=== PATIENT | male | born 1990 | race Hispanic/Latino ===

== ENCOUNTER 2017-02-04 21:27 | Observation (INO) | payer OTHER ==
[2017-02-04 21:28] VITALS: BMI 23.1
[2017-02-04] MEDS ORDERED: Multivitamin (MVI) 10 ML, Thiamine 100 MG, Folic Acid 1 MG in Dextrose 5% In Water 1,00... IV ONE (22:33)
[2017-02-04] MEDS ORDERED: TDAP Vaccine 0.5 mL Syr IM ONE (22:33)
--- NOTE | 2017-02-04 22:39 | ED PDOC ---
Arrival/HPI - General Historian: Patient <Eleazar Multani - Last Filed: 02/05/17 00:31> <Joel Zuniga - Last Filed: 02/05/17 05:40> <Compa Marshall - Last Filed: 02/05/17 09:44> - General Chief Complaint: Alcohol Ingestion Time Seen by Provider: 02/04/17 22:32 - History of Present Illness Narrative History of Present Illness (Text): 02/04/17 22:36 26 y/o male, no significant pmh, nkda, last tetanus over 10 years ago, biba due to the etoh in the public and fall on the head in the ER while intoxicated in the ER. Pt. stated that he wants to go home, no homicidal or suicidal ideation , no auditory or visual hallucination, no night sweat, no dizziness, limited HPI can be obtained due to the patient is intoxicated at this time. (Eleazar Multani ) Past Medical History - Provider Review Nursing Documentation Reviewed: Yes - Past Medical History Past Medical History: No Previous - Psychiatric Hx Depression: No Hx Emotional Abuse: No Hx Physical Abuse: No Hx Substance Use: Yes (CANNABIS) - Past Surgical History Past Surgical History: No Previous - Suicidal Assessment Feels Threatened In Home Enviroment: No <Eleazar Multani - Last Filed: 02/05/17 00:31> Family/Social History - Physician Review Nursing Documentation Reviewed: Yes Family/Social History: Unknown Family HX Smoking Status: no Hx Alcohol Use: No Hx Substance Use: Yes (CANNABIS) <Eleazar Multani - Last Filed: 02/05/17 00:31> Allergies/Home Meds <Eleazar Multani - Last Filed: 02/05/17 00:31> <Joel Zuniga - Last Filed: 02/05/17 05:40> <Compa Marshall - Last Filed: 02/05/17 09:44> Allergies/Adverse Reactions: Allergies silver Allergy (Verified 02/04/17 21:52) RASH Home Medications: Home Meds Medication Instructions Recorded Confirmed No Known Home Med 02/04/17 02/04/17 Review of Systems - Review of Systems Systems not reviewed;Unavailable: Intoxicated Constitutional: absent: Fatigue, Fevers Eyes: absent: Vision Changes Respiratory: absent: SOB, Cough Cardiovascular: absent: Chest Pain Gastrointestinal: absent: Abdominal Pain, Nausea, Vomiting Skin: absent: Rash, Pruritis Neurological: absent: Headache, Dizziness Psychiatric: absent: Anxiety, Depression, Suicidal Ideation <Eleazar Multani - Last Filed: 02/05/17 00:31> Physical Exam - Physical Exam Physical Exam Limitations: Intoxication Vital Signs Reviewed: Yes Temperature: Afebrile Blood Pressure: Normal Pulse: Regular Respiratory Rate: Normal Appearance: Positive for: Well-Appearing, Non-Toxic Pain Distress: None Mental Status: Positive for: Agitated Finger Stick Blood Glucose: 98 - Systems Exam Head: Present: Tenderness (rt. posterior occipital), Swelling (rt. posterior occipital), Other (+ttp on the facial cheek region). No: Contusion, Ecchymosis , Abrasion, Laceration Pupils: Present: PERRL, Other (bilateral pupils dilated approx. 6mm) Extroacular Muscles: Present: EOMI Conjunctiva: Present: Normal Mouth: Present: Moist Mucous Membranes Neck: Present: Normal Range of Motion Respiratory/Chest: Present: Clear to Auscultation, Good Air Exchange. No: Respiratory Distress, Accessory Muscle Use Cardiovascular: Present: Regular Rate and Rhythm, Normal S1, S2. No: Murmurs Abdomen: Present: Normal Bowel Sounds. No: Tenderness, Distention, Peritoneal Signs Back: Present: Normal Inspection Upper Extremity: Present: Normal Inspection. No: Cyanosis, Edema Lower Extremity: Present: Normal Inspection, Other (Lt. knee; visible superficial abrasion approx. [id number] with no bony tenderness or swelling, no deformity, no joint laxity, FROM without limitation, sensation intact, motor 5/5 , +DPPT pulses, capillary refill< 2 seconds, neurovascular intact. ). No: Edema Neurological: Present: GCS=15 Skin: Present: Warm, Dry, Normal Color. No: Rashes Psychiatric: Present: Alert, Normal Insight, Normal Concentration, Intoxicated <Eleazar Multani - Last Filed: 02/05/17 00:31> Medical Decision Making - Lab Interpretations I have reviewed the lab results: Yes Interpretation: No clinic. lab abnormalty - RAD Interpretation Application Performance Engineer: Radiologist - Transfer of Care Patient signed out to Dr:: Nadia <Eleazar Multani - Last Filed: 02/05/17 00:31> <Joel Zuniga - Last Filed: 02/05/17 05:40> <Compa Marshall - Last Filed: 02/05/17 09:44> ED Course and Treatment: 02/04/17 22:37 -restraints was initially order as he was agitated and fighting the police and staff. -labs -Pt. constantly trying to get up and pushing the staff, ativan will be ordered with the banana bag -tetanus -wound irrigate with normal saline, clean with betadine, bacitracin and gauze dressing -Observe the patient until sober. (Eleazar Multani) - Lab Interpretations Lab Results: Lab Results 02/04/17 22:32: POC Glucose (mg/dL) 98 - RAD Interpretation Radiology Orders: 02/04/17 22:33 HEAD W/O CONTRAST [CT] Stat FINDINGS: Brain: No acute intracranial hemorrhage. No significant white matter disease. No edema. Ventricles: No significant ventriculomegaly. Bones: No acute displaced fracture. Sinuses: Unremarkable as visualized. No acute sinusitis. Mastoid air cells: Unremarkable as visualized. No mastoid effusion. IMPRESSION: No acute intracranial hemorrhage, or suspicious mass effect. Thank you for allowing us to participate in the care of your patient. Dictated and Authenticated by: Sravanthi Chester MD 02/05/2017 12:01 AM Eastern Time ([place] & [place] CT Facial: COMPARISON: No relevant prior studies available. FINDINGS: Bones/joints: No acute fracture. Soft tissues: Symmetric. Orbits: Preserved. Sinuses: No air-fluid levels. IMPRESSION: No acute fracture, as detailed above. Thank you for allowing us to participate in the care of your patient. Dictated and Authenticated by: Sravanthi Chester MD 02/05/2017 12:21 AM Eastern Time ([place] & [place]) (Eleazar Multani) - Medication Orders Current Medication Orders: Discontinued Medications Multivitamins/Vitamin C 10 ml/Thiamine HCl 100 mg/ Folic Acid 1 mg/ Dextrose 1, 011.2 mls @ 1,000 mls/hr IV .Q1H1M ONE Stop: 02/04/17 23:33 Last Admin: 02/04/17 23:07 Dose: 1,000 mls/hr Lorazepam (Ativan) 1 mg IVP ONCE ONE PRN Reason: Protocol Stop: 02/04/17 22:36 Last Admin: 02/04/17 23:06 Dose: 1 mg Comments: Administered IM - Right Deltoid, YOKASTA Bush aware. Tetanus/Reduced Diphtheria/Acell Pertussis (Boostrix Vaccine Inj) 0.5 ml IM .ONCE ONE Stop: 02/04/17 22:34 Last Admin: 02/04/17 23:05 Dose: 0.5 ml ED OBSERVATION Date of observation admission: 02/04/17 Time of observation admission: 23:00 <Eleazar Multani - Last Filed: 02/05/17 00:31> <Joel Zuniga - Last Filed: 02/05/17 05:40> <Compa Marshall - Last Filed: 02/05/17 09:44> - Observation admission statement Patient is being placed in observation because:: alcohol intoxication (Eleazar Multani) - Goals of Observation Goals of observation are:: sober (Eleazar Multani) - Progress Note Progress Note: 02/04/17 23:00 -labs/ct head/IV banana bag ordered. -Observe and reassess 02/05/17 01:00 -Labs are non-significant -CT head and facial show no acute traumatic findings 02/05/17 02:00 -Pt. is sleeping well, no medical or psychological complaints. -Case discussed and signout to the ER attending DR. Zuniga for follow up. (Eleazar Multani) 02/05/17 04:00 Pt sleeping well, resting comfortably. 02/05/17 06:00 Pt resting comfortably, no acute distress. 02/05/17 07:[address] Marshall, pending sobriety, re-evaluation, and final disposition. (Joel Zuniga) 02/05/17 07:00 Case endorsed to me by Dr. Zuniga, pending sobriety, reevaluation and disposition. Resting comfortably with stable vitals. 02/05/17 09:30 Patient is alert and oriented X3, and able to ambulate with a steady gait. Patient is stable for discharge. (Compa Marshall) - PA / HAM DOCTOR / Resident Statement SEBASTIAN has reviewed & agrees with the documentation as recorded. <Eleazar Multani - Last Filed: 02/05/17 00:31> - PA / HAM DOCTOR / Resident Statement SEBASTIAN has reviewed & agrees with the documentation as recorded. SEBASTIAN has examined the patient and agrees with the treatment plan. <Joel Zuniga - Last Filed: 02/05/17 05:40> Disposition/Present on Arrival - Present on Arrival Any Indicators Present on Arrival: No History of DVT/PE: No History of Uncontrolled Diabetes: No Urinary Catheter: No History of Decub. Ulcer: No History Surgical Site Infection Following: None - Disposition Have Diagnosis and Disposition been Completed?: Yes Disposition Time: 22:39 <Eleazar Multani - Last Filed: 02/05/17 00:31> <Joel Zuniga - Last Filed: 02/05/17 05:40> - Disposition Patient Plan: Discharge <Compa Marshall - Last Filed: 02/05/17 09:44> - Disposition Diagnosis: Alcohol intoxication, Abrasion, Fall Disposition: HOME/ ROUTINE Patient Problems: Current Active Problems Problem Status Onset Abrasion Acute Alcohol intoxication Acute Fall Acute Condition: STABLE
[2017-02-04 23:17] LABS: ADD MANUAL DIFF? NO
[2017-02-04 23:27] LABS: BASO # 0.05 K/mm3 (0.0-2.0); BASO % 0.6 % (0.0-3.0); EOS # 0.1 (0.0-0.7); EOS % 1.3 % (1.5-5.0); GRAN # 5.72 (1.4-6.5); GRAN % 67.1 % (50.0-68.0); HEMATOCRIT 48.6 % (42.0-52.0); LYMPH # 2.1 (1.2-3.4); MEAN CORPUSCULAR HEMOGLOBIN 32.6 pg (25.0-35.0); MEAN CORPUSCULAR HGB CONC 35.8 g/dl (31.0-37.0); MEAN PLATELET VOLUME 9.9 fl (7.0-11.0); MONO # 0.5 (0.1-0.6); PLATELET COUNT 192 10^3/uL (120.0-450.0); WHITE BLOOD COUNT 8.5 10^3/ul (4.5-11.0)
[2017-02-04 23:32] LABS: ALB/GLOB RATIO 1.5 (1.1-1.8); ALKALINE PHOSPHATASE 72 U/L (38-133); ALT/SGPT 36 U/L (7-56); AST/SGOT 28 U/L (15-59); BILIRUBIN,TOTAL 0.7 mg/dL (0.2-1.3); BLOOD UREA NITROGEN 12 mg/dL (7-21); CALCIUM 8.9 mg/dL (8.4-10.5); CARBON DIOXIDE 26 mmol/L (21-33); CHLORIDE 107 mmol/L (98-107); GFR AFRICAN-AMERICAN > 60; GLUCOSE,RANDOM 102 mg/dL (70-110); MAGNESIUM 2.2 mg/dL (1.7-2.2); POTASSIUM 3.7 mmol/L (3.6-5.0); SODIUM 146 mmol/L (132-148); TOTAL PROTEIN 7.5 g/dL (5.8-8.3)
[2017-02-04 23:55] VITALS: O2SAT 99
--- NOTE | 2017-02-05 00:02 | CT ---
EXAM: CT Head Without Intravenous Contrast CLINICAL HISTORY: 26 years old, male; Injury or trauma; Fall; Initial encounter; Blunt trauma (contusions or hematomas); Consciousness not specified; Additional info: ETOH, fall TECHNIQUE: Axial computed tomography images of the head/brain without intravenous contrast. This CT exam was performed using one or more of the following dose reduction techniques: automated exposure control, adjustment of the mA and/or kV according to patient size, and/or use of iterative reconstruction technique. COMPARISON: No relevant prior studies available. FINDINGS: Brain: No acute intracranial hemorrhage. No significant white matter disease. No edema. Ventricles: No significant ventriculomegaly. Bones: No acute displaced fracture. Sinuses: Unremarkable as visualized. No acute sinusitis. Mastoid air cells: Unremarkable as visualized. No mastoid effusion. IMPRESSION: No acute intracranial hemorrhage, or suspicious mass effect.
--- NOTE | 2017-02-05 00:22 | CT ---
EXAM: CT Maxillofacial Without Intravenous Contrast CLINICAL HISTORY: 26 years old, male; Injury or trauma; Fall; Initial encounter; Blunt trauma (contusions or hematomas); Cheek bone and eyelid and maxilla and jaw; Not specified; Additional info: ETOH fall TECHNIQUE: Axial computed tomography images of the face without intravenous contrast. This CT exam was performed using one or more of the following dose reduction techniques: automated exposure control, adjustment of the mA and/or kV according to patient size, and/or use of iterative reconstruction technique. Coronal and sagittal reformatted images were created and reviewed. COMPARISON: No relevant prior studies available. FINDINGS: Bones/joints: No acute fracture. Soft tissues: Symmetric. Orbits: Preserved. Sinuses: No air-fluid levels. IMPRESSION: No acute fracture, as detailed above.
[2017-02-05 04:15] VITALS: RESP 18
[2017-02-05 07:44] VITALS: TEMP 97.8
[2017-02-05 09:33] VITALS: BP 134/85; PULSE 84
== END 2017-02-05 09:45 | disposition home or self-care (01) ==
LOC: ED 21:27 → EROBSV 22:40
PROVIDERS: ADMIT Emergency Medicine; ATTEND Emergency Medicine
DX: F10.129 Alcohol abuse with intoxication, unspecified (principal); S80.212A Abrasion, left knee, initial encounter; W18.30XA Fall on same level, unspecified, initial encounter; Z23 Encounter for immunization
CPT/HCPCS: 36415; 70450; 70486; 80053; 82948; 83735; 85025; 90471; 90715; 96365; 96375; 99285; G0378; G0480; J2060; J3411; J7070